=== PATIENT | male | born 1965 | race Caucasian/White ===

== ENCOUNTER 2016-09-15 15:56 | Emergency (ER) | payer OTHER ==
[2016-09-15] MEDS ORDERED: diPHENhydraMINE IV* 50 MG/ML 1 ml VIAL (BENADRYL) IM ONE (16:06)
--- NOTE | 2016-09-15 17:07 | UC ---
Allergic Reaction HPI - HPI Summary HPI Summary: Administered first dose of Levemir at 2 pm today, and had onset of urticaria and tightness in chest within a half hour. Came here for assessment. Has been using Lantus for years, but was advised would no longer be covered by insurance, so the switch was made to Levemir. Full body erythema, urticarial reaction on presentation today. - History of Current Complaint Chief Complaint: UCGeneralIllness Stated Complaint: REACTION TO INSULIN Time Seen by Provider: 09/15/16 16:00 Hx Obtained From: Patient Onset/Duration: Sudden Onset, Lasting Hours - onset just prior to presentation Severity Initially: Moderate Severity Currently: Moderate Location: Diffuse Character: Pruritus, Hives Aggrevating Factor(s): Nothing Alleviating Factor(s): Antihistamines - given here Associated Signs And Symptoms: Positive: Other: - chest feels a little tight. - Related Hx Possible Reaction To: Medications - Levemir - Allergies/Home Medications Allergies/Adverse Reactions: Allergies Allergy/AdvReac Type Severity Reaction Status Date / Time No Known Allergies Allergy Verified 09/15/16 16:08 Home Medications: Home Medications Insulin Detemir (NF) [Levemir (NF)] 90 unit SUBCUT DAILY 09/15/16 [History Confirmed 09/15/16] Pravastatin (NF) [Pravachol (NF)] 20 mg PO BEDTIME 09/15/16 [History Confirmed 09/15/16] PMH/Surg Hx/FS Hx/Imm Hx - Additional Past Medical History Additional PMH: untreated sleep apnea--did not tolerate titration study Endocrine History Of: Reports: Diabetes - Type II Cardiovascular History Of: Reports: Cardiac Disorders - Surgical History Surgical History: None - Family History Known Family History: Positive: Hypertension - Social History Occupation: Employed Full-time Lives: With Family - son Alcohol Use: Occasionally Alcohol Amount: one drink a week Substance Use Type: None Smoking Status (MU): Former Smoker - Immunization History Most Recent Influenza Vaccination: none Review of Systems Constitutional: Fatigue Skin: Rash - over face, arms, trunk Eyes: Negative ENT: Negative Respiratory: Other - chest feels a little tight, but sat is fine and breathing is comfortable Cardiovascular: Negative Gastrointestinal: Negative Genitourinary: Negative Motor: Negative Neurovascular: Negative Musculoskeletal: Negative Neurological: Negative Psychological: Negative All Other Systems Reviewed And Are Negative: Yes Physical Exam Triage Information Reviewed: Yes Appearance: Ill-Appearing - looks fatigued., Obese Vital Signs: Initial Vital Signs Temp 96.4 F 09/15/16 16:04 Pulse 88 09/15/16 16:04 Resp 18 09/15/16 16:04 BP 153/81 09/15/16 16:04 Pulse Ox 98 09/15/16 16:04 Vital Signs Reviewed: Yes Eyes: Positive: Other: - left eye injection (pterygium) ENT: Positive: Pharynx normal, Other: - no tongue swelling, has anatomically large tongue Neck: Positive: Supple, Nontender, No Lymphadenopathy Respiratory: Positive: Lungs clear, Normal breath sounds Cardiovascular: Positive: RRR, No Murmur Musculoskeletal: Positive: Strength Intact, ROM Intact Psychological Exam: Normal Skin: Positive: rashes - diffuse erythematous patches consistent with urticaria over trunk, arms, face. Re-Evaluation - Re-Evaluation First Eval Re-Evaluation Time: 17:00 Change: Improved - urticarial reaction improved by 75% Allergic Reaction Course/Dx - Course Course Of Treatment: benadryl given im with decreased erythema - Differential Dx/Diagnosis Differential Diagnosis/HQI/PQRI: Anaphylaxis, Angioedema, Urticaria Provider Diagnoses: urticarial reaction to Levemir insulin. Discharge - Discharge Plan Condition: Stable Disposition: HOME Prescriptions: Insulin GLARGINE(*) [Lantus(*)] 100 units SUBCUT Q24H #45 ml Patient Education Materials: Urticaria (ED), Adverse Drug Reaction (ED) Additional Instructions: Continue use of oral benadryl 25 to 50 mg every 6 hours, and keep your skin well moisturized. You should see improvement over the next 24 hours, but the hives could continue to pop up for another 10 to 14 days, especially if you get overheated. I have sent a prescription for Lantus to your pharmacy, but your primary care physician will probably need to do a prior authorization for it due to the adverse reaction.
[2016-09-15 17:14] VITALS: BP 136/87
== END 2016-09-15 17:23 | disposition home or self-care (01) ==
LOC: UCCORT 15:56
DX: L50.0 Allergic urticaria (principal); T38.3X5A Adverse effect of insulin and oral hypoglycemic [antidiabetic] drugs, initial encounter; Y92.9 Unspecified place or not applicable; R07.89 Other chest pain; E11.9 Type 2 diabetes mellitus without complications; Z79.4 Long term (current) use of insulin; Z87.891 Personal history of nicotine dependence
CPT/HCPCS: 96372; 99212; G0463; J1200

== ENCOUNTER 2016-11-19 15:38 | Emergency (ER) | payer OTHER ==
[2016-11-19 16:19] VITALS: BP 112/77
--- NOTE | 2016-11-19 16:43 | UC ---
Throat Pain/Nasal Myke HPI - HPI Summary HPI Summary: States that his sore throat started an hour ago. He looked in the mirror and saw white patches so he came to be checked for strep throat. He denies any fevers or recent contact with anyone who is sick. He states that he did start a new job and is around dust frequently. He complains of some nasal congestion but states that he normally has problems with congestion. - History of Current Complaint Chief Complaint: UCGeneralIllness Stated Complaint: THROAT COMPLAINT Time Seen by Provider: 11/19/16 16:32 Hx Obtained From: Patient Onset/Duration: Sudden Onset Severity: Mild Associated Signs & Symptoms: Positive: Sinus Discomfort, Nasal Discharge. Negative: Fever - Allergies/Home Medications Allergies/Adverse Reactions: Allergies Allergy/AdvReac Type Severity Reaction Status Date / Time No Known Allergies Allergy Verified 11/19/16 16:13 Home Medications: Home Medications Dulaglutide [Trulicity] 0.75 mg SC WEEKLY 11/19/16 [History Confirmed 11/19/16] metFORMIN* [Glucophage 1000 MG TAB *] 1,000 mg PO BID 11/19/16 [History Confirmed 11/19/16] PMH/Surg Hx/FS Hx/Imm Hx Previously Healthy: Yes Endocrine History Of: Reports: Diabetes - Type II Cardiovascular History Of: Reports: Cardiac Disorders, Hypertension - Surgical History Surgical History: None - Family History Known Family History: Positive: Hypertension - Social History Occupation: Employed Full-time Lives: With Family Alcohol Use: Occasionally Alcohol Amount: one beer a week Substance Use Type: None Smoking Status (MU): Never Smoked Tobacco - Immunization History Most Recent Influenza Vaccination: none Review of Systems Constitutional: Negative Skin: Negative Eyes: Negative ENT: Sore Throat, Nasal Discharge Respiratory: Negative Cardiovascular: Negative Gastrointestinal: Negative Genitourinary: Negative Motor: Negative Neurovascular: Negative Musculoskeletal: Negative Neurological: Negative Psychological: Negative All Other Systems Reviewed And Are Negative: Yes Physical Exam Triage Information Reviewed: Yes Appearance: Well-Appearing, No Pain Distress, Well-Nourished Vital Signs: Initial Vital Signs Temp 97.4 F 11/19/16 16:15 Pulse 110 11/19/16 16:15 Resp 16 11/19/16 16:15 BP 112/77 11/19/16 16:15 Pulse Ox 97 11/19/16 16:15 Vital Signs Reviewed: Yes Eye Exam: Normal Eyes: Positive: Conjunctiva Clear ENT Exam: Other ENT: Positive: Hearing grossly normal, Pharyngeal erythema, TMs normal, Tonsillar exudate - slight, whitish exudate. Negative: Nasal drainage Neck exam: Normal Neck: Positive: Supple, Nontender, No Lymphadenopathy Respiratory Exam: Normal Respiratory: Positive: Chest non-tender, Lungs clear, Normal breath sounds, No respiratory distress Cardiovascular Exam: Other Cardiovascular: Positive: RRR, No Murmur, Tachycardia Musculoskeletal Exam: Normal Musculoskeletal: Positive: Strength Intact, ROM Intact Neurological Exam: Normal Neurological: Positive: Alert, Muscle Tone Normal Psychological Exam: Normal Psychological: Positive: Age Appropriate Behavior Skin Exam: Normal Throat Pain/Nasal Course/Dx - Course Course Of Treatment: His rapid strep test was negative. This is most likely pharyngitis caused by a virus. We have educated him to take Ibuprofen for pain and that he can use a numbing spray such as Chloraseptic before bed. We have encouraged him to return or follow-up with his primary care provider if he experiences fevers or worsening symptoms. - Differential Dx/Diagnosis Provider Diagnoses: pharyngitis Discharge - Discharge Plan Condition: Stable Disposition: HOME Patient Education Materials: Pharyngitis (ED) Print Language: SYRIAC Referrals: Jerry Griffin MD [Primary Care Provider] - Additional Instructions: This is most likely pharyngitis due to a virus. Your rapid strep test was negative. You make take Ibuprofen for the sore throat and can use a numbing spray such as Chloraseptic before bed if the sore throat keeps you awake. Salt water rinses may also help with the pain. Please return or follow-up with your primary care provider for any fevers or worsening symptoms.
== END 2016-11-19 17:17 | disposition home or self-care (01) ==
LOC: UCCORT 15:38
DX: J02.9 Acute pharyngitis, unspecified (principal); J34.89 Other specified disorders of nose and nasal sinuses; E11.9 Type 2 diabetes mellitus without complications; Z79.84 Long term (current) use of oral hypoglycemic drugs; I10 Essential (primary) hypertension
CPT/HCPCS: 87651; 99211; G0463

== ENCOUNTER 2016-12-19 10:07 | Emergency (ER) | payer OTHER ==
[2016-12-19 10:26] VITALS: BP 133/87
--- NOTE | 2016-12-19 10:41 | UC ---
Throat Pain/Nasal Myke HPI - HPI Summary HPI Summary: sinus pain and pressure x 1 week + pnd, sore throat, + cough no fever , no chills - History of Current Complaint Chief Complaint: UCRespiratory Stated Complaint: SORE THROAT SINUS COMPLAINT Time Seen by Provider: 12/19/16 10:32 Hx Obtained From: Patient Onset/Duration: Gradual Onset, Lasting Days - 7, Still Present Severity: Moderate Cough: Nonproductive Associated Signs & Symptoms: Positive: Sinus Discomfort, Nasal Discharge. Negative: Fever, Vomiting, Rash - Allergies/Home Medications Allergies/Adverse Reactions: Allergies Allergy/AdvReac Type Severity Reaction Status Date / Time No Known Allergies Allergy Verified 12/19/16 10:26 PMH/Surg Hx/FS Hx/Imm Hx Endocrine History Of: Reports: Diabetes - Type II Cardiovascular History Of: Reports: Cardiac Disorders, Hypertension - Surgical History Surgical History: Yes Surgery Procedure, Year, and Place: hernia - Family History Known Family History: Positive: Hypertension - Social History Alcohol Use: Occasionally Alcohol Amount: one beer a week Substance Use Type: None Smoking Status (MU): Former Smoker Type: Cigarettes Amount Used/How Often: 1 ppd Length of Time of Smoking/Using Tobacco: 8-10 years Have You Smoked in the Last Year: No When Did the Patient Quit Smoking/Using Tobacco: 1999 - Immunization History Most Recent Influenza Vaccination: none Review of Systems Constitutional: Negative Skin: Negative Eyes: Negative ENT: Sore Throat, Ear Ache, Nasal Discharge Respiratory: Cough Cardiovascular: Negative All Other Systems Reviewed And Are Negative: Yes Physical Exam Triage Information Reviewed: Yes Appearance: Well-Appearing, No Pain Distress, Well-Nourished Vital Signs: Initial Vital Signs Temp 97.8 F 12/19/16 10:17 Pulse 89 12/19/16 10:17 Resp 16 12/19/16 10:17 BP 133/87 12/19/16 10:17 Pulse Ox 98 12/19/16 10:17 Vital Signs Reviewed: Yes Eye Exam: Normal Eyes: Positive: Conjunctiva Clear ENT: Positive: Normal ENT inspection, Hearing grossly normal, Pharyngeal erythema, Nasal congestion, Nasal drainage, TMs normal Neck exam: Normal Neck: Positive: Supple, Nontender, No Lymphadenopathy Respiratory: Positive: Chest non-tender, Lungs clear, Normal breath sounds Cardiovascular: Positive: RRR, No Murmur, Pulses Normal Throat Pain/Nasal Course/Dx - Differential Dx/Diagnosis Provider Diagnoses: sinusitis Discharge - Discharge Plan Condition: Stable Disposition: HOME Prescriptions: Amoxicillin/Clavulanate TAB* [Augmentin TAB 875*] 875 mg PO BID #20 tab Patient Education Materials: Sinusitis (ED) Referrals: Jerry Griffin MD [Primary Care Provider] - If Needed
== END 2016-12-19 10:45 | disposition home or self-care (01) ==
LOC: UCCORT 10:07
DX: J32.9 Chronic sinusitis, unspecified (principal); E11.9 Type 2 diabetes mellitus without complications; I10 Essential (primary) hypertension; Z87.891 Personal history of nicotine dependence
CPT/HCPCS: 99212; G0463

== ENCOUNTER 2019-01-02 13:21 | Emergency (ER) | payer OTHER ==
[2019-01-02 14:00] VITALS: BP 138/76
--- NOTE | 2019-01-02 14:06 | UC ---
General HPI - HPI Summary HPI Summary: PT C/O PAIN IN HIS R SHOULDER AND INNER R SCAPULA AREA SINCE 12/28/18. IT BEGAN AFTER DOING YARD WORK THE 2 DAYS PRIOR PLUS HIS JOB REQUIRES A LOT OF R SHOULDER USE. HE ALSO NOTES HE HAS BEEN HAVING SOME STIFFNESS TO MUSCLES OVER THE BACK OF HIS NECK FOR A COUPLE OF WEEKS WELL. HE SOMETIMES GETS A NUMBNESS TO THE OUTSIDE OF THE SHOULDER AND INTO HIS FINGER. NO CP, SOB OR HX OF INJURY. HE DOES SLEEP ON THAT ARM WHICH MAKES IT WORSE. HE HAS BEEN SELF TXING WITH SOME MOTRIN. PT STATES "I THINK I JUST OVER DID IT" - History of Current Complaint Chief Complaint: UCGeneralIllness Stated Complaint: RT SHOULDER PAIN Time Seen by Provider: 01/02/19 14:04 Hx Obtained From: Patient Pain Intensity: 2 Aggravating: MOVEMENT Associated Signs & Symptoms: Negative: Chest Pain, SOB, Weakness - Allergy/Home Medications Allergies/Adverse Reactions: Allergies Allergy/AdvReac Type Severity Reaction Status Date / Time insulin detemir Allergy Rash Verified 01/02/19 14:01 [From Levemir U-100 Insulin] Home Medications: Home Medications Empaglifozin (NF) [Jardiance] 1 tab PO DAILY 01/02/19 [History Confirmed ] PMH/Surg Hx/FS Hx/Imm Hx Endocrine History: Diabetes GI/ History: Gastroesophageal Reflux - Surgical History Surgical History: Yes Surgery Procedure, Year, and Place: hernia - Family History Known Family History: Positive: Hypertension - Social History Occupation: Employed Full-time Alcohol Use: Rare Alcohol Amount: one beer a week Substance Use Type: None Smoking Status (MU): Former Smoker Type: Cigarettes Amount Used/How Often: 1 ppd Length of Time of Smoking/Using Tobacco: 8-10 years Have You Smoked in the Last Year: No When Did the Patient Quit Smoking/Using Tobacco: 1999 - Immunization History Most Recent Influenza Vaccination: none Review of Systems All Other Systems Reviewed And Are Negative: Yes Constitutional: Negative: Fever Skin: Negative: Rash Respiratory: Negative: Shortness Of Breath, Cough Cardiovascular: Negative: Palpitations, Other Motor: Negative: Weakness Neurological: Positive: Paresthesia, Numbness - R SHOULDER/ARM Physical Exam Triage Information Reviewed: Yes Appearance: Well-Appearing Vital Signs: Initial Vital Signs Temp 97.2 F 05/22/19 13:55 Pulse 90 01/02/19 13:55 Resp 16 01/02/19 13:55 BP 138/76 01/02/19 13:55 Pulse Ox 99 01/02/19 13:55 Vital Signs Reviewed: Yes Neck: Positive: Supple, No Lymphadenopathy, Other: - R TRAPEZIUS MUSCLE TENDERNESS. C-SPINE IS NON TENDER Respiratory: Positive: Lungs clear, Normal breath sounds, No respiratory distress Cardiovascular: Positive: RRR, No Murmur, Pulses Normal - BUE'S Abdomen Description: Positive: Nontender Musculoskeletal: Positive: Other: - BACK: no gross deformity or rash. spine is non tender. tender over R medial scapluar border and R side of trapezius. back has full rom. RUE: compared to L has no deformity. pt notes tenderness over the lateral shoulder. passive rom to shoulder is painless and intact but pt c/o active rom. the shoulder does have full active rom. rest of rue is unremarkable and the hand has full s/v/m function. Neurological: Positive: Alert Psychological: Positive: Age Appropriate Behavior Skin Exam: Normal Skin: Negative: Rashes Course/Dx - Diagnoses Provider Diagnosis: Right shoulder pain, Trapezius muscle spasm, Radiculopathy of arm Discharge - Sign-Out/Discharge Documenting (check all that apply): Patient Departure All imaging exams completed and their final reports reviewed: No Studies - Discharge Plan Condition: Stable Disposition: HOME Prescriptions: Cyclobenzaprine TAB* [Flexeril 10 MG TAB*] 10 mg PO TID PRN #10 tab PRN Reason: Spasms - Muscle Naproxen [Naprosyn 500 mg tab] 500 mg PO BID 5 Days #10 tablet Patient Education Materials: Muscle Spasm (ED), Shoulder Pain (ED) Forms: *Work Release Referrals: Jaydon Villarreal MD [Medical Doctor] - As Soon As Possible - Billing Disposition and Condition Condition: STABLE Disposition: Home
== END 2019-01-02 14:41 | disposition home or self-care (01) ==
LOC: UCCORT 13:21
DX: M25.511 Pain in right shoulder (principal); M62.838 Other muscle spasm; E11.9 Type 2 diabetes mellitus without complications; Z87.891 Personal history of nicotine dependence; Z79.84 Long term (current) use of oral hypoglycemic drugs; Z88.8 Allergy status to other drugs, medicaments and biological substances
CPT/HCPCS: 99212; G0463

== ENCOUNTER 2019-06-06 09:19 | Emergency (ER) | payer OTHER ==
[2019-06-06 09:30] VITALS: BP 145/72
--- NOTE | 2019-06-06 10:18 | UC ---
Throat Pain/Nasal Myke HPI - HPI Summary HPI Summary: 53-year-old male comes with a chief complaint of upper respiratory tract infection symptoms for 8 or more days. He's got green rhinorrhea is getting frontal sinus pressure. It's been getting frontal headaches. No fevers measured. Does have postnasal drip and does feel some chest congestion. No history of asthma or COPD he is not a smoker. Been trying [id number] medicines which helped some with the symptoms but overall is not improving. - History of Current Complaint Chief Complaint: UCGeneralIllness Stated Complaint: SINUS COMPLAINT Time Seen by Provider: 06/06/19 10:02 Pain Intensity: 0 - Allergies/Home Medications Allergies/Adverse Reactions: Allergies Allergy/AdvReac Type Severity Reaction Status Date / Time insulin detemir Allergy Rash Verified 06/06/19 09:26 [From Levemir U-100 Insulin] Home Medications: Home Medications diphenhydrAMINE HCl [Sleep Aid] 50 mg PO BEDTIME 06/06/19 [History Confirmed ] guaiFENesin [Mucinex] 600 mg PO BID 06/06/19 [History Confirmed 06/06/19] PMH/Surg Hx/FS Hx/Imm Hx Previously Healthy: Yes Endocrine History: Diabetes Cardiovascular History: Hypertension - Surgical History Surgical History: Yes Surgery Procedure, Year, and Place: hernia - Family History Known Family History: Positive: Hypertension - Social History Alcohol Use: Rare Alcohol Amount: one beer a week Substance Use Type: None Smoking Status (MU): Former Smoker Type: Cigarettes Amount Used/How Often: 1 ppd Length of Time of Smoking/Using Tobacco: 8-10 years Have You Smoked in the Last Year: No When Did the Patient Quit Smoking/Using Tobacco: 1999 - Immunization History Most Recent Influenza Vaccination: none Review of Systems All Other Systems Reviewed And Are Negative: Yes Constitutional: Positive: Negative Skin: Positive: Negative Eyes: Positive: Negative ENT: Positive: Sore Throat, Ear Ache, Nasal Discharge, Sinus Congestion, Sinus Pain/Tenderness Respiratory: Positive: Cough Cardiovascular: Positive: Negative Gastrointestinal: Positive: Negative Motor: Positive: Negative Neurovascular: Positive: Negative Musculoskeletal: Positive: Negative Neurological: Positive: Negative Psychological: Positive: Negative Is Patient Immunocompromised?: No Physical Exam Triage Information Reviewed: Yes Appearance: No Pain Distress, Well-Nourished, Ill-Appearing - mild Vital Signs: Initial Vital Signs Temp 97.9 F 06/06/19 09:28 Pulse 77 06/06/19 09:28 Resp 16 06/06/19 09:28 BP 145/72 06/06/19 09:28 Pulse Ox 98 06/06/19 09:28 Vital Signs Reviewed: Yes Eye Exam: Normal Eyes: Positive: Conjunctiva Clear ENT: Positive: Pharyngeal erythema, Nasal congestion, Nasal drainage, TMs normal Neck: Positive: Supple Respiratory: Positive: Lungs clear, Normal breath sounds, No respiratory distress Cardiovascular: Positive: RRR Musculoskeletal: Positive: Strength Intact, ROM Intact Neurological: Positive: Alert, Muscle Tone Normal Psychological: Positive: Age Appropriate Behavior Skin Exam: Normal Throat Pain/Nasal Course/Dx - Course Course Of Treatment: DISCUSSED VIRAL VERSES BACTERIAL INFECTIONS AND THE ROLE OF ANTIBIOTICS. THE PATIENT PREFERS TO BE ON ANTIBIOTICS AT THIS TIME. - Differential Dx/Diagnosis Provider Diagnosis: Sinusitis Discharge ED - Sign-Out/Discharge Documenting (check all that apply): Patient Departure All imaging exams completed and their final reports reviewed: No Studies - Discharge Plan Condition: Stable Disposition: HOME Prescriptions: Amoxicillin/Clavulanate TAB* [Augmentin TAB 875*] 875 mg PO BID #20 tab Fluticasone NASAL SPRAY 50MCG* [Flonase NASAL SPRAY 50MCG*] 2 spray BOTH NARES DAILY #1 btl Patient Education Materials: Sinusitis (ED) Referrals: Ruddy Cam MD [Primary Care Provider] - Additional Instructions: FOLLOW UP WITH YOUR DOCTOR IF NOT COMPLETELY IMPROVED. GET REEVALUATED SOONER IF NOT IMPROVING OR YOUR CONDITION WORSENS OR ANY QUESTIONS OR CONCERNS. - Billing Disposition and Condition Condition: STABLE Disposition: Home
== END 2019-06-06 10:24 | disposition home or self-care (01) ==
LOC: UCCORT 09:19
DX: J32.9 Chronic sinusitis, unspecified (principal); E11.9 Type 2 diabetes mellitus without complications; I10 Essential (primary) hypertension; Z88.8 Allergy status to other drugs, medicaments and biological substances; Z87.891 Personal history of nicotine dependence
CPT/HCPCS: 99212; G0463